=== PATIENT | female | born 1960 | race Caucasian/White ===

== ENCOUNTER 2016-08-21 09:19 | Emergency (ER) | payer OTHER ==
[~2016-08-21] VITALS: Ht 157.5 cm; Wt 89.5 kg
[~2016-08-21 09:19] MED LIST: Aquasol-A,Vitamin A PO; CYANOCOBALAM1000 MCG PO; Calcium Carbonate,Ca PO; Cranberry PO; Feosol PO; Lovenox SC; TRAMADOL HCL50 MG PO; Theragran PO; oxyCODONE PO
[2016-08-21 10:03] LABS: POINT-OF-CARE METER ID UU13113778
[2016-08-21 10:16] LABS: ADD MIUA? NO; BILIRUBIN NEGATIVE; BLOOD NEGATIVE; COLOR LT YELLOW ((YELLOW)); GLUCOSE (STRIP) 100; KETONES TRACE; LEUKOCYTES NEGATIVE; NITRITE NEGATIVE; PH, URINE 7.5 (5-8); PROTEIN (STRIP) NEGATIVE; SPECIFIC GRAVITY 1.015 (1.000-1.030); UCUL ADDED? NO; UROBILINOGEN 0.2 MG/DL (0.2-1.0)
[2016-08-21 10:27] LABS: HEMATOCRIT 36.9 % (36.0-46.0); MCH 31.4 PG (29.0-34.0); MCHC 34.1 G/DL (30.0-36.0); MEAN PLAT.VOLUME 10.9 uM^3 (9.5-12.4); PLATELET COUNT 282 K/uL (156-360); RBC DIS.WIDTH-CV 11.6 % (11.8-14.6); RBC DIS.WIDTH-SD 38.1 % (39-53); RED BLOOD COUNT 4.01 M/uL (3.80-5.20); WHITE BLOOD COUNT 11.5 K/uL (4.1-10.2)
[2016-08-21 10:40] LABS: CHLORIDE 106 mEq/L (99-109); POTASSIUM 3.6 mEq/L (3.7-5.4); SODIUM 141 mEq/L (136-147)
[2016-08-21 10:43] LABS: GLUCOSE 159 mg/dL (70-99)
[2016-08-21 10:44] LABS: ANION GAP 12 MEQ/L (2-14)
[2016-08-21 10:45] LABS: TOTAL BILIRUBIN 0.3 mg/dL (0.0-1.0)
[2016-08-21 10:46] LABS: ALKALINE PHOSPHATASE 79 IU/L (3-129); GFR ESTIMATE (CALCULATED) > 59 mL/min/
[2016-08-21 10:47] LABS: UREA NITROGEN (BUN) 11 mg/dL (9-23)
[2016-08-21] MEDS ORDERED: ZOFRAN ODT4 MG PO (13:07)
[2016-08-21 13:26] VITALS: BP 168/71
== END 2016-08-21 11:35 | disposition home or self-care (01) ==
LOC: EME 09:19
PROVIDERS: Physician Assistant Medical
DX: R19.7 Diarrhea, unspecified (principal); R10.32 Left lower quadrant pain; R32 Unspecified urinary incontinence; Z87.442 Personal history of urinary calculi
CPT/HCPCS: 74177; 80053; 81003; 82948; 85027; 99281; 99284; J2405; J7030